=== PATIENT | male | born 2000 | race Native Hawaiian/Other Pacific Islander ===

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

== ENCOUNTER 2021-01-14 22:25 | Emergency (ER) | payer OTHER ==
[~2021-01-14] VITALS: Ht 165.1 cm; Wt 58.1 kg
[2021-01-14 22:50] LABS: PLATELET COUNT 254 K/uL (142-355)
[2021-01-14 22:59] LABS: POTASSIUM 3.2 mmol/L (3.6-5.2)
[2021-01-15 02:08] VITALS: BP 127/71; TEMP 99.4
== END 2021-01-15 02:10 | disposition home or self-care (01) ==
LOC: ED 22:25
PROVIDERS: Hospitalist
DX: S16.1XXA Strain of muscle, fascia and tendon at neck level, initial encounter (principal); S29.012A Strain of muscle and tendon of back wall of thorax, initial encounter; S39.012A Strain of muscle, fascia and tendon of lower back, initial encounter; S09.8XXA Other specified injuries of head, initial encounter; V58.0XXA Driver of pick-up truck or van injured in noncollision transport accident in nontraffic accident, initial encounter; Y92.89 Other specified places as the place of occurrence of the external cause
CPT/HCPCS: 36415; 80053; 80320; 85027; 96360; 96361; 96365; 96375; 99284; J1885; J2270; J2405; J3370

== ENCOUNTER 2021-08-29 19:10 | Emergency (ER) | payer BC ==
[~2021-08-29] VITALS: Ht 167.6 cm; Wt 59.0 kg
[2021-08-29 20:06] LABS: PLATELET COUNT 203 K/uL (142-355)
[2021-08-29 20:57] VITALS: BP 110/48; TEMP 98.1
== END 2021-08-29 20:57 | disposition home or self-care (01) ==
LOC: ED 19:10
PROVIDERS: Emergency Medicine
DX: K52.89 Other specified noninfective gastroenteritis and colitis (principal); Z20.822 Contact with and (suspected) exposure to COVID-19
CPT/HCPCS: 36415; 80053; 81000; 85027; 87635; 99283; U0003

== ENCOUNTER 2021-12-28 16:49 | Emergency (ER) | payer BC ==
[~2021-12-28] VITALS: Ht 167.6 cm; Wt 59.0 kg
[2021-12-28 17:00] VITALS: BP 125/77; TEMP 98.1
== END 2021-12-28 18:20 | disposition home or self-care (01) ==
LOC: ED 16:49
DX: S60.122A Contusion of left index finger with damage to nail, initial encounter (principal); S60.112A Contusion of left thumb with damage to nail, initial encounter; S62.525A Nondisplaced fracture of distal phalanx of left thumb, initial encounter for closed fracture; W23.0XXA Caught, crushed, jammed, or pinched between moving objects, initial encounter; Y92.89 Other specified places as the place of occurrence of the external cause
CPT/HCPCS: 96372; 99283; J1885